=== PATIENT | male | born 1990 | race Caucasian/White ===

== ENCOUNTER 2016-10-21 23:03 | Emergency (ER) | payer MEDICAID ==
[2016-10-21 23:48] VITALS: RESP 14
[2016-10-22] MEDS ORDERED: Sodium Chloride 0.9% 1,000 ML IV STA (00:05)
--- NOTE | 2016-10-22 00:07 | C.PDOC ---
History Of Present Illness A 26 year old male, whose past medical history includes Diabetes (on Metformin) , presents to the emergency room with complaints of generalized weakness for 3 hrs. Patient reports that he felt drained with sweaty hands and "is not feeling like himself." Patient denies any fever, chills, chest pain, vomiting, diarrhea , dysuria, or any other complaints. Patient checked his fingerstick which was approximately 170. Time Seen by Provider: 10/21/16 23:55 Chief Complaint (Nursing): Weakness/Neurological Deficit History Per: Patient History/Exam Limitations: no limitations Onset/Duration Of Symptoms: Hrs (3) Current Symptoms Are (Timing): Still Present Seizure Or Post-ictal Symptoms: None Fall Associated With With Symptoms: No Severity: Mild Past Medical History Reviewed: Historical Data, Nursing Documentation, Vital Signs Vital Signs: Last Vital Signs Temp 98.1 F 10/21/16 23:41 Pulse 93 H 10/21/16 23:41 Resp 14 10/21/16 23:41 BP 133/88 10/21/16 23:41 Pulse Ox 95 10/22/16 00:09 - Medical History PMH: Asthma Surgical History: Hernia Repair Family History: States: Hypertension - Social History Hx Alcohol Use: No Hx Substance Use: No Review Of Systems Except As Marked, All Systems Reviewed And Found Negative. Constitutional: Positive for: Weakness (Generalized weakness). Negative for: Fever, Chills Cardiovascular: Negative for: Chest Pain Gastrointestinal: Negative for: Vomiting, Diarrhea Genitourinary: Negative for: Dysuria Physical Exam - Physical Exam Additional Physical Exam Comments: Constitutional: No acute distress. Head: Normocephalic. Atraumatic. Eyes: PERRL. ENT: Moist mucous membranes. Neck: Supple. Cardiovascular: Regular rate. Chest: No tenderness. Respiratory: Clear to auscultation bilaterally. GI: Soft. Nontender. Nondistended. Obese. Back: No CVA tenderness. Musculoskeletal: No tenderness or swelling of extremities. Skin: Dark discoloration of forehead. Neurologic: Alert, no focal deficit. ED Course And Treatment - Laboratory Results Result Diagrams: 10/22/16 00:15 10/22/16 00:15 O2 Sat by Pulse Oximetry: 95 Medical Decision Making Medical Decision Making: Labs unremarkable. Slightly elevated mono diff and LFTs, mono? Sent monospot, will not be performed by lab until AM. Will discharge home, supportive care, f/ u PMD, can call in for result. Disposition - Disposition Disposition: HOME/ ROUTINE Disposition Time: 01:06 Condition: STABLE Prescriptions: Ibuprofen [Motrin] 600 mg PO Q6 #25 tab Instructions: Mononucleosis (ED), Weakness (ED) - Clinical Impression Clinical Impression: Generalized weakness - Scribe Statement The provider has reviewed the documentation as recorded by the Kemal Kaiser Provider Scribe Attestation: All medical record entries made by the Kemal were at my direction and personally dictated by me. I have reviewed the chart and agree that the record accurately reflects my personal performance of the history, physical exam, medical decision making, and the department course for this patient. I have also personally directed, reviewed, and agree with the discharge instructions and disposition.
[2016-10-22 00:34] LABS: BASO # 0.1 K/uL (0.0-0.2); BASO % 0.8 % (0.0-2.0); EOS # 0.3 K/uL (0.0-0.7); EOS % 4.2 % (0.0-4.0); HEMATOCRIT 42.7 % (35.0-51.0); LYMPH # 2.5 K/uL (1.0-4.3); LYMPH % 35.1 % (20.0-40.0); MEAN CELL VOLUME 91.3 fL (80.0-94.0); MEAN CORPUSCULAR HEMOGLOBIN 30.3 pg (27.0-31.0); MEAN CORPUSCULAR HGB CONC 33.2 g/dL (33.0-37.0); MEAN PLATELET VOLUME 10.2 fL (7.2-11.7); MONO # 0.9 K/uL (0.0-0.8); MONO % 12.9 % (0.0-10.0); NRBC % 0.1 % (0.0-2.0); RED CELL DISTRIBUTION WIDTH 12.9 % (11.5-14.5)
[2016-10-22 00:41] LABS: RBC URINE < 1 /hpf (0-3); URINE BILIRUBIN NEGATIVE (NEGATIVE); URINE BLOOD NEGATIVE (NEGATIVE); URINE COLOR Yellow (YELLOW); URINE GLUCOSE (UA) NORMAL (Normal); URINE KETONE NEGATIVE (NEGATIVE); URINE LEUKOCYTE ESTERASE NEG Leu/uL (Negative); URINE PROTEIN NEGATIVE (NEGATIVE); URINE UROBILINOGEN NORMAL mg/dL (0.2-1.0); WBC URINE 1 /hpf (0-5)
[2016-10-22 00:42] LABS: CHLORIDE 103 mmol/L (98-107)
[2016-10-22 00:43] LABS: POTASSIUM 4.5 mmol/L (3.6-5.2); SODIUM 141 mmol/L (132-148)
[2016-10-22 00:45] LABS: ALB/GLOB RATIO 1.3 (1.0-2.1); AST/SGOT 82 U/L (17-59); BILIRUBIN,TOTAL 0.8 mg/dL (0.2-1.3); BLOOD UREA NITROGEN 10 mg/dL (9-20); CARBON DIOXIDE 25 mmol/L (22-30); GFR AFRICAN-AMERICAN > 60; GLUCOSE,RANDOM 162 mg/dL (75-110); TOTAL PROTEIN 7.6 g/dL (6.3-8.3)
[2016-10-22 00:46] LABS: ALKALINE PHOSPHATASE 67 U/L (38-126); ALT/SGPT 158 U/L (21-72); CALCIUM 8.7 mg/dl (8.6-10.4)
[2016-10-22 00:52] LABS: DRAW SITE VBG; VENOUS BLOOD GAS BASE EXCESS 1.2 mmol/L (0.0-2.0); VENOUS BLOOD GAS PCO2 44 mmHg (40-60); VENOUS BLOOD PH 7.39 (7.32-7.43)
[2016-10-22 01:41] VITALS: BP 130/80; PULSE 80; TEMP 98; O2SAT 98
--- NOTE | 2016-10-22 09:19 | RAD ---
HISTORY: weakness COMPARISON: None available. TECHNIQUE: Chest PA and lateral FINDINGS: Examination limited by habitus hypoinflation. LUNGS: No focal consolidation. Please note that chest x-ray has limited sensitivity for the detection of pulmonary masses. PLEURA: No significant pleural effusion identified. No definite pneumothorax . CARDIOVASCULAR: The cardiomediastinal silhouette appears within normal limits of size. OSSEOUS STRUCTURES: No acute osseous abnormality identified. VISUALIZED UPPER ABDOMEN: Unremarkable. OTHER FINDINGS: None. IMPRESSION: No focal consolidation, significant pleural effusion, or definite pneumothorax identified.
== END 2016-10-22 01:29 | disposition home or self-care (01) ==
LOC: C.ER 23:03
DX: R53.1 Weakness (principal); E11.9 Type 2 diabetes mellitus without complications; Z79.84 Long term (current) use of oral hypoglycemic drugs
CPT/HCPCS: 71020; 80053; 81001; 82009; 82803; 85025; 86308; 99285; J7040

== ENCOUNTER 2017-04-27 09:23 | Emergency (ER) | payer MEDICAID ==
[2017-04-27 09:43] VITALS: TEMP 97.5
[2017-04-27] MEDS ORDERED: Sodium Chloride 0.9% 1,000 ML IV ONE (09:58)
[2017-04-27 10:00] VITALS: PULSE 88; O2SAT 98
[2017-04-27] MEDS ORDERED: Sodium Chloride 0.9% 1,000 ML ONE (10:04)
--- NOTE | 2017-04-27 10:13 | C.PDOC ---
History Of Present Illness 27 y/o male, pmhx diabetes and asthma, presents to emergency department with complaint of palpitations starting at 0600 today, shortly after eating [employer] with orange juice. Patient reports feeling a "heartbeat in his head ", feeling lightheaded, and that palms were sweaty. Patient reports symptoms lasted about 10 minutes, took an aspirin, and symptoms resolved. Denies ever having chest pain. Patient states similar symptoms have been recurring for almost a month. He additionally reports that he is not sleeping well, typically 4 hrs per night, and is restless during the night. Time Seen by Provider: 04/27/17 09:48 Chief Complaint (Nursing): Palpitations History Per: Patient History/Exam Limitations: no limitations Onset/Duration Of Symptoms: Days, Intermittent Episodes Associated Symptoms: Dizziness. denies: Chest Pain Recent travel outside of the [place]: No Past Medical History Reviewed: Historical Data, Nursing Documentation, Vital Signs Vital Signs: Last Vital Signs Temp 97.5 F L 04/27/17 09:31 Pulse 88 04/27/17 11:59 Resp 16 04/27/17 11:59 BP 137/81 04/27/17 11:59 Pulse Ox 98 04/27/17 12:41 - Medical History PMH: Asthma Surgical History: Hernia Repair Family History: States: Hypertension - Social History Hx Alcohol Use: No Hx Substance Use: No - Immunization History Hx Tetanus Toxoid Vaccination: No Hx Influenza Vaccination: No Hx Pneumococcal Vaccination: No Review Of Systems Except As Marked, All Systems Reviewed And Found Negative. Constitutional: Negative for: Fever, Chills Cardiovascular: Positive for: Palpitations. Negative for: Chest Pain Respiratory: Negative for: Cough, Shortness of Breath, Wheezing Gastrointestinal: Negative for: Nausea, Vomiting, Abdominal Pain Skin: Negative for: Rash Neurological: Positive for: Dizziness. Negative for: Headache Physical Exam - Physical Exam Appears: Non-toxic, No Acute Distress, Other (obese) Skin: Normal Color, Warm, Dry Head: Atraumatic, Normacephalic Chest: Symmetrical Cardiovascular: Rhythm Regular Respiratory: Normal Breath Sounds, No Rales, No Rhonchi, No Wheezing Gastrointestinal/Abdominal: Soft, No Tenderness, No Guarding, No Rebound Back: Normal Inspection Extremity: Normal ROM, Capillary Refill (< 2 sec.) Neurological/Psych: Oriented x3, Normal Speech, Normal Cognition ED Course And Treatment - Laboratory Results Result Diagrams: 04/27/17 11:25 04/27/17 12:02 Lab Interpretation: No Acute Changes ECG: Interpreted By Me, Viewed By Me ECG Rhythm: Sinus Rhythm ECG Interpretation: No Acute Changes Rate From EC O2 Sat by Pulse Oximetry: 98 Pulse Ox Interpretation: Normal - Radiology CXR: Viewed By Me, Read By Radiologist CXR Interpretation: Yes: No Acute Disease Medical Decision Making Medical Decision Making: Impression: 27 y/o male with c/o palpitations and associated with dizziness, intermittently over last few months Prior records reviewed: Patient last seen 10/22/16 for generalized weakness, normal labs Plan: * EKG * Labs * CXR Progress: CxR shows no acute cardiopulmonary disease Patient states he was seen by clinical rehabilitation aide 8 months ago had testing and everything was normal Labs reviewed with no acute findings, troponin negative. satellite project site monitor showed no arrythymias. Patient remained well and asymptomatic during ED evaluation over 3 hours. He denies chest pain or SOB. Symptoms likely not cardiac related. Provide copy of all results and instruct patient to follow up with PCP, clinical rehabilitation aide for further evaluation. He feels comfortable with discharge Disposition Counseled Patient/Family Regarding: Diagnosis, Need For Followup - Disposition Referrals: Geovanny Olmstead MD [Medical Doctor] - Disposition: HOME/ ROUTINE Disposition Time: 12:38 Condition: STABLE Additional Instructions: Your labs EKG and Chest xray were normal It is important that you follow up with your primary doctor in timely manner for further care Try to reduce stress and get more sleep and rest Continue taking your usual diabetic medications Return to ER for any concerning or worsening symptoms Instructions: Palpitations (ED) Forms: [facility] (Eritrean) - POA Present On Arrival: None - Clinical Impression Clinical Impression: Palpitations, Insomnia - PA / UTILITY AIRCREWMAN / Resident Statement MD/DO has reviewed & agrees with the documentation as recorded. - Scribe Statement The provider has reviewed the documentation as recorded by the Kemal Joe All medical record entries made by the Joelibvicente were at my direction and personally dictated by me. I have reviewed the chart and agree that the record accurately reflects my personal performance of the history, physical exam, medical decision making, and the department course for this patient. I have also personally directed, reviewed, and agree with the discharge instructions and disposition.
[2017-04-27 10:18] LABS: RBC URINE < 1 /hpf (0-3); URINE BILIRUBIN NEGATIVE (NEGATIVE); URINE BLOOD NEGATIVE (NEGATIVE); URINE COLOR Yellow (YELLOW); URINE GLUCOSE (UA) 1+ mg/dL (Normal); URINE KETONE NEGATIVE (NEGATIVE); URINE LEUKOCYTE ESTERASE NEG Leu/uL (Negative); URINE PROTEIN NEGATIVE (NEGATIVE); WBC URINE < 1 /hpf (0-5)
--- NOTE | 2017-04-27 10:28 | RAD ---
HISTORY: Palpations COMPARISON: Comparison chest 10/22/2016 TECHNIQUE: Chest PA and lateral FINDINGS: LUNGS: No active pulmonary disease. PLEURA: No significant pleural effusion identified. No pneumothorax apparent. CARDIOVASCULAR: Normal. OSSEOUS STRUCTURES: Minor chronic appearing anterior stature loss of several mid thoracic segments unchanged VISUALIZED UPPER ABDOMEN: Normal. OTHER FINDINGS: None. IMPRESSION: No acute cardiopulmonary disease.
[2017-04-27 11:30] LABS: BASO # 0.1 K/uL (0.0-0.2); BASO % 0.7 % (0.0-2.0); EOS # 0.4 K/uL (0.0-0.7); EOS % 5.2 % (0.0-4.0); HEMATOCRIT 40.2 % (35.0-51.0); LYMPH # 2.9 K/uL (1.0-4.3); LYMPH % 37.9 % (20.0-40.0); MEAN CELL VOLUME 90.8 fL (80.0-94.0); MEAN CORPUSCULAR HEMOGLOBIN 30.5 pg (27.0-31.0); MEAN CORPUSCULAR HGB CONC 33.6 g/dL (33.0-37.0); MONO # 1.1 K/uL (0.0-0.8); MONO % 14.4 % (0.0-10.0); RED CELL DISTRIBUTION WIDTH 12.6 % (11.5-14.5); WHITE BLOOD COUNT 7.7 K/uL (4.8-10.8)
[2017-04-27 12:01] VITALS: BP 137/81; RESP 16
[2017-04-27 12:13] LABS: CHLORIDE 100 mmol/L (98-107)
[2017-04-27 12:14] LABS: SODIUM 136 mmol/L (132-148)
[2017-04-27 12:16] LABS: BILIRUBIN,TOTAL 0.6 mg/dL (0.2-1.3); CARBON DIOXIDE 30 mmol/L (22-30); GFR AFRICAN-AMERICAN > 60
[2017-04-27 12:17] LABS: ALB/GLOB RATIO 1.1 (1.0-2.1); ALKALINE PHOSPHATASE 86 U/L (38-126); ALT/SGPT 95 U/L (21-72); AST/SGOT 30 U/L (17-59); BLOOD UREA NITROGEN 12 mg/dL (9-20); CALCIUM 8.7 mg/dl (8.6-10.4); GLUCOSE,RANDOM 117 mg/dL (75-110); TOTAL PROTEIN 7.8 g/dL (6.3-8.3)
[2017-04-27 12:24] LABS: INR 1.1
[2017-04-27 12:48] LABS: THYROID STIMULATING HORMONE 2.98 mIU/L (0.46-4.68)
--- NOTE | 2017-04-28 11:48 | CARD ---
APPROVED REPORT EKG Measurement Heart [id number] <Conclusion> Normal sinus rhythm Normal ECG
== END 2017-04-27 13:00 | disposition home or self-care (01) ==
LOC: C.ER 09:23
DX: G47.00 Insomnia, unspecified (principal); R00.2 Palpitations; E11.9 Type 2 diabetes mellitus without complications
CPT/HCPCS: 71020; 80053; 81001; 82553; 83880; 84443; 84484; 85025; 85610; 85730; 93005; 96360; 99285; J7040

== ENCOUNTER 2017-07-28 16:03 | Emergency (ER) | payer MEDICAID ==
[2017-07-28 16:08] VITALS: RESP 18
[2017-07-28] MEDS ORDERED: Sodium Chloride 0.9% 1,000 ML IV STA (16:29)
[2017-07-28 16:56] LABS: BASO # 0.1 K/uL (0.0-0.2); BASO % 1.1 % (0.0-2.0); EOS # 0.4 K/uL (0.0-0.7); EOS % 6.5 % (0.0-4.0); HEMOGLOBIN 14.6 g/dL (12.0-18.0); LYMPH # 2.2 K/uL (1.0-4.3); LYMPH % 33.7 % (20.0-40.0); MEAN CELL VOLUME 90.1 fL (80.0-94.0); MEAN CORPUSCULAR HEMOGLOBIN 30.9 pg (27.0-31.0); MEAN CORPUSCULAR HGB CONC 34.2 g/dL (33.0-37.0); MEAN PLATELET VOLUME 10.1 fL (7.2-11.7); MONO # 0.9 K/uL (0.0-0.8); MONO % 14.4 % (0.0-10.0); NEUT # 2.8 K/uL (1.8-7.0); NEUT % 44.3 % (50.0-75.0); NRBC % 0.1 % (0.0-2.0); RBC 4.73 Mil/uL (4.40-5.90); RED CELL DISTRIBUTION WIDTH 12.7 % (11.5-14.5); WHITE BLOOD COUNT 6.4 K/uL (4.8-10.8)
[2017-07-28 17:02] LABS: URINE BILIRUBIN NEGATIVE (NEGATIVE); URINE BLOOD NEGATIVE (NEGATIVE); URINE CLARITY Clear (Clear); URINE COLOR Yellow (YELLOW); URINE GLUCOSE (UA) NORMAL (Normal); URINE LEUKOCYTE ESTERASE NEG Leu/uL (Negative); URINE NITRATE NEGATIVE (NEGATIVE); URINE PROTEIN NEGATIVE (NEGATIVE); URINE UROBILINOGEN NORMAL mg/dL (0.2-1.0)
[2017-07-28 17:07] LABS: ALB/GLOB RATIO 1.2 (1.0-2.1); ALBUMIN 4.2 g/dL (3.5-5.0); ALT/SGPT 54 U/L (21-72); AST/SGOT 23 U/L (17-59); BLOOD UREA NITROGEN 14 mg/dL (9-20); CALCIUM 8.9 mg/dl (8.6-10.4); GFR AFRICAN-AMERICAN > 60; GFR NON-AFRICAN AMERICAN > 60; MAGNESIUM 1.4 mg/dL (1.6-2.3)
[2017-07-28 17:19] LABS: CK-MB 0.36 ng/mL (0.0-3.38)
[2017-07-28 17:31] LABS: D DIMER < 200 ng/mlDDU (0-243); INR 1.1; PARTIAL THROMBOPLASTIN TIME 34 SECONDS (21-34)
[2017-07-28 17:40] LABS: BARBITURATES, UR NEGATIVE (NEGATIVE); BENZODIAZEPINES, UR NEGATIVE (NEGATIVE); OPIATES, UR NEGATIVE (NEGATIVE); PHENCYCLIDINE, UR NEGATIVE (NEGATIVE)
--- NOTE | 2017-07-28 17:52 | C.PDOC ---
History Of Present Illness 27yo male, reports he was talking to his brother earlier today when suddenly his brother informed him his speech was different. Patient reports he had a 5 minute long episode of slurred speech and left sided headache which has now subsided. He states after this episode, he felt anxious, his palms were sweaty, he was shaking and had heart palpitations. Patient denies any chest pain, dizziness or weakness. Of note, patient states he has had panic attacks before and this episode was worse than usual. He denies any other complaints. Time Seen by Provider: 07/28/17 16:21 Chief Complaint (Nursing): Dizziness/Lightheaded History Per: Patient History/Exam Limitations: no limitations Onset/Duration Of Symptoms: Hrs Current Symptoms Are (Timing): Still Present Activity At Onset Of Symptoms: Sitting Past Medical History Reviewed: Historical Data, Nursing Documentation, Vital Signs Vital Signs: Last Vital Signs Temp 97.8 F 07/28/17 18:12 Pulse 100 H 07/28/17 18:12 Resp 18 07/28/17 18:12 BP 124/82 07/28/17 18:12 Pulse Ox 96 07/28/17 18:20 - Medical History PMH: Asthma Surgical History: Hernia Repair Family History: States: Hypertension - Social History Hx Alcohol Use: No Hx Substance Use: No - Immunization History Hx Tetanus Toxoid Vaccination: No Hx Influenza Vaccination: No Hx Pneumococcal Vaccination: No Review Of Systems Except As Marked, All Systems Reviewed And Found Negative. Constitutional: Positive for: Sweats Cardiovascular: Positive for: Palpitations Neurological: Positive for: Change in Speech, Headache (left sided) Physical Exam - Physical Exam Appears: Non-toxic Skin: Normal Color, Warm Head: Atraumatic, Normacephalic Eye(s): bilateral: Normal Inspection, PERRL, EOMI Neck: Normal ROM, Supple Chest: Symmetrical Cardiovascular: Rhythm Regular Respiratory: Normal Breath Sounds Neurological/Psych: Oriented x3, Normal Speech, Normal Cognition, Normal Cranial Nerves, Normal Motor, Normal Sensation ED Course And Treatment - Laboratory Results Result Diagrams: 07/28/17 16:52 07/28/17 16:52 O2 Sat by Pulse Oximetry: 96 (RA) Pulse Ox Interpretation: Normal Medical Decision Making Medical Decision Making: Plan: -- CT Head -- Labs -- IV Fluids Case discussed with Dr. Long who states if CT is negative, patient does not meet criteria for admission for TIA and patient can be discharged home with instructions for outpatient follow up and outpatient workup. Time: 1725 PROCEDURE: CT HEAD WITHOUT CONTRAST. HISTORY: left TONEY COMPARISON: None available. TECHNIQUE: Axial computed tomography images were obtained through the head/brain without intravenous contrast. Radiation dose: Total exam DLP = 1372.81 mGy-cm. This CT exam was performed using one or more of the following dose reduction techniques: Automated exposure control, adjustment of the mA and/or kV according to patient size, and/or use of iterative reconstruction technique. FINDINGS: HEMORRHAGE: No intracranial hemorrhage. BRAIN: No mass effect or edema. No atrophy or chronic microvascular ischemic changes. VENTRICLES: Unremarkable. No hydrocephalus. CALVARIUM: Unremarkable. PARANASAL SINUSES: Small bilateral maxillary retention cyst/polyp. Left ora bullosa. MASTOID AIR CELLS: Unremarkable as visualized. No inflammatory changes. OTHER FINDINGS: None. IMPRESSION: No intracranial mass, hemorrhage or evidence of acute infarct. Small bilateral maxillary retention cysts/ polyps. Left ora bullosa incidentally noted. Patient informed of CT findings and plan per Dr. Long. Patient is agreeable and is stable for discharge home. Disposition - Disposition Referrals: Rajan Long MD [Staff Provider] - Disposition: HOME/ ROUTINE Disposition Time: 18:19 Condition: STABLE Additional Instructions: Follow up with PMD and Neurologist within 1-2 days. Return to ED if feel worse. Instructions: General Headache (ED) Forms: [facility] (Faroese) - Clinical Impression Clinical Impression: Headache - PA / BAG PRESS OPERATOR / Resident Statement MD/DO has reviewed & agrees with the documentation as recorded. - Scribe Statement The provider has reviewed the documentation as recorded by the Kemal Felix Provider Scribe Attestation: All medical record entries made by the Kemal were at my direction and personally dictated by me. I have reviewed the chart and agree that the record accurately reflects my personal performance of the history, physical exam, medical decision making, and the department course for this patient. I have also personally directed, reviewed, and agree with the discharge instructions and disposition.
[2017-07-28 18:12] VITALS: BP 124/82; PULSE 100; TEMP 97.8
[2017-07-28 18:20] VITALS: O2SAT 96
--- NOTE | 2017-07-28 19:19 | CT ---
PROCEDURE: CT HEAD WITHOUT CONTRAST. HISTORY: left TONEY COMPARISON: None available. TECHNIQUE: Axial computed tomography images were obtained through the head/brain without intravenous contrast. Radiation dose: Total exam DLP = 1372.81 mGy-cm. This CT exam was performed using one or more of the following dose reduction techniques: Automated exposure control, adjustment of the mA and/or kV according to patient size, and/or use of iterative reconstruction technique. FINDINGS: HEMORRHAGE: No intracranial hemorrhage. BRAIN: No mass effect or edema. No atrophy or chronic microvascular ischemic changes. VENTRICLES: Unremarkable. No hydrocephalus. CALVARIUM: Unremarkable. PARANASAL SINUSES: Small bilateral maxillary retention cyst/polyp. Left ora bullosa. MASTOID AIR CELLS: Unremarkable as visualized. No inflammatory changes. OTHER FINDINGS: None. IMPRESSION: No intracranial mass, hemorrhage or evidence of acute infarct. Small bilateral maxillary retention cysts/ polyps. Left ora bullosa incidentally noted.
== END 2017-07-28 18:31 | disposition home or self-care (01) ==
LOC: C.ER 16:03
DX: R51 Headache (principal)
CPT/HCPCS: 70450; 80053; 80324; 80345; 80346; 80349; 80353; 80358; 80361; 81001; 82550; 82553; 83735; 83992; 84484; 85025; 85378; 85610; 85730; 96360; 99285; J7040

== ENCOUNTER 2018-07-19 12:14 | Outpatient (CLI) | payer MEDICAID | END 2018-07-19 12:15 | disposition home or self-care (01) | LOC: C.PAT 12:14 | DX: Z01.818 Encounter for other preprocedural examination (principal); J34.2 Deviated nasal septum; J34.3 Hypertrophy of nasal turbinates; J32.0 Chronic maxillary sinusitis; J32.2 Chronic ethmoidal sinusitis ==

== ENCOUNTER 2018-07-31 06:12 | Day surgery (SDC) | payer MEDICAID ==
[2018-07-19 12:30] VITALS: BMI 41.8
[2018-07-31] MEDS ORDERED: Lidocaine/Epinephrine 1% 1:100000 10 ML IJ ONE (07:27)
[2018-07-31] MEDS ORDERED: ceFAZolin 1 gm in NS 2 GM/200 ML BAG IVPB ONE (07:27)
[2018-07-31] MEDS ORDERED: EPINEPHrine 1:1000 Nasal Sol(30mL) ONE (07:28)
[2018-07-31] MEDS ORDERED: Acetaminophen-Codeine 300/30 mg Tab PO PRN (08:07)
[2018-07-31] MEDS ORDERED: Dextrose 5%/0.45% NS 1,000 ML IV SCH (08:15)
[2018-07-31] MEDS ORDERED: Midazolam 2 MG/2 ML VIAL ONE (08:24)
[2018-07-31] MEDS ORDERED: Propofol 10 mg/ml Inj (20 ML) ONE (08:24)
[2018-07-31] MEDS ORDERED: Succinylcholine Chloride 20 mg/ml Syr (5 ml) IV ONE ×2 (08:27→08:30)
[2018-07-31] MEDS ORDERED: Phenylephrine 10 mg/ml Inj ONE (09:48)
[2018-07-31] MEDS ORDERED: HYDROmorphone 0.5 mg/0.5 ml ISec IVP PRN (10:08)
[2018-07-31] MEDS ORDERED: Lactated Ringer's 1,000 ML IV SCH (10:15)
[2018-07-31] MEDS ORDERED: Lactated Ringer's 1,000 ML IV ONE (10:39)
[2018-07-31 14:12] VITALS: BP 147/80; PULSE 91; RESP 20; TEMP 98; O2SAT 96
--- NOTE | 2018-07-31 20:00 | OP ---
PROCEDURE DATE: 07/31/2018 POSTOPERATIVE DIAGNOSES: Deviated septum, large turbinates, sinusitis changes noted in the ethmoid sinuses and maxillary antrum stenosed on both sides. POSTOPERATIVE DIAGNOSES: Deviated septum, large turbinates, sinusitis, chronic PROCEDURE: Septoplasty, endoscopic bilateral maxillary antrostomy, endoscopic bilateral man ethmoidectomy, endoscopic bilateral inferior turbinate reduction. SURGEON: Oniel Blair MD DESCRIPTION OF PROCEDURE: The patient was brought into room, placed in supine position, anesthesia initiated through an ET tube and the patient was draped in usual manner. Navigation was set and used throughout the case in order to ensure that the skull base and orbit were not entered. Adrenaline-soaked pledgets were inserted into nasal cavity that remained there for 5 minutes then removed. The septum was injected with lidocaine with epinephrine on both sides. A [place] incision was made on the left and mucoperichondrial flap was raised on that side. A vertical incision was made in the cartilage leaving a 1-1/2 cm anterior and superior strut and the mucoperichondrial flap was raised on the other side. Deviated portions of the bone and cartilage were removed using forceps and chisel. A quilting suture was used to suture the two flaps together and close the [place] incision. The 0-degree scope was inserted into the nasal cavity. The inferior turbinates were noted to be enlarged and reduced in size using scissors going from an inferior to superior, anterior posterior direction on both sides, first on the left then on the right. Bleeding was controlled using suction cautery on both sides. Attention was turned to left and the turbinate was injected with lidocaine with epinephrine and medialized. The uncinate process was medialized using a [place] elevator and removed using forceps. The ethmoid bulla was entered using a debrider inferomedially going posterior to the basal lamella, then anterior and superiorly until the ethmoid bulla was removed. The basal lamella was entered. Posterior ethmoid cells were entered and opened. Skull base was identified and followed anteriorly all the way to the area of anterior ethmoid air cells. Next, a curved suction hooked up to navigation was used to locate the maxillary antrum which was noted to be stenosed and opened using forceps. Attention was turned to the other side. The middle turbinate was injected with lidocaine with epinephrine and medialized. The uncinate process was medialized using a [place] elevator and removed using forceps. The ethmoid bulla was entered inferomedially going posteriorly to the basal lamella then anterior and superiorly until the ethmoid bulla was removed. The basal lamella was entered. The posterior ethmoid cells were entered and opened. Skull base was identified and followed anteriorly all the way to the area of anterior ethmoid air cells. A curved suction hooked up to navigation was used to locate the maxillary antrum which was noted to be stenosed and opened using forceps and bleeding was controlled using suction cautery on both sides. Stents were placed. Splints were placed. The patient was taken off anesthesia and taken to recovery room in stable manner. Oniel Blair MD
== END 2018-07-31 14:17 | disposition home or self-care (01) ==
LOC: C.SDS 06:12
PROVIDERS: ATTEND Otolaryngology
DX: J34.2 Deviated nasal septum (principal); J34.3 Hypertrophy of nasal turbinates; J32.0 Chronic maxillary sinusitis; E11.9 Type 2 diabetes mellitus without complications; J32.2 Chronic ethmoidal sinusitis
CPT/HCPCS: 30130; 30520; 31020; 31201; 61781; 82948; 88304; J0690; J1170; J2250; J2370; J2704; J3010; J7120

== ENCOUNTER 2018-08-02 20:55 | Emergency (ER) | payer MEDICAID ==
[2018-08-02 20:55] VITALS: BMI 41.8
[2018-08-02] MEDS ORDERED: Sodium Chloride 0.9% 1,000 ML IV ONE ×2 (21:16→21:55)
--- NOTE | 2018-08-02 21:16 | C.PDOC ---
History Of Present Illness Patient had sinus surgery two days ago by Dr. Blair, he has Hx of noninsulin dependent diabetes not on any medications, but states since his surgery and starting prednisone his sugar has been out of control greater than 500. Denies f ever or chills. Time Seen by Provider: 08/02/18 21:15 Chief Complaint (Nursing): High Blood Sugar History Per: Patient History/Exam Limitations: no limitations Onset/Duration Of Symptoms: Days Current Symptoms Are (Timing): Still Present Severity: Moderate Pain Scale Rating Of: 4 Current Diabetic Medications: None Causative (Exacerbating) Factor(s): Recent Steroids Associated Infectious Symptoms: denies: Other (Fever, Chills) Recent travel outside of the [place]: No Past Medical History Reviewed: Historical Data, Nursing Documentation, Vital Signs Vital Signs: Last Vital Signs Temp 98.3 F 08/02/18 21:01 Pulse Resp 18 08/02/18 21:01 BP 136/81 08/02/18 21:01 Pulse Ox 99 08/02/18 21:01 - Medical History PMH: Asthma ("NOT HOSPITALIZED SINCE A YOUNG CHILD.") Denies: Chronic Kidney Disease Surgical History: Hernia Repair Family History: States: Hypertension - Social History Hx Alcohol Use: No Hx Substance Use: No - Immunization History Hx Tetanus Toxoid Vaccination: No Hx Influenza Vaccination: No Hx Pneumococcal Vaccination: No Review Of Systems Constitutional: Negative for: Fever, Chills Cardiovascular: Negative for: Chest Pain, Palpitations Respiratory: Negative for: Cough, Shortness of Breath Gastrointestinal: Negative for: Nausea, Vomiting Neurological: Negative for: Weakness, Numbness Physical Exam - Physical Exam Appears: Non-toxic, Other (Obese) Skin: Warm, Dry Head: Normacephalic Eye(s): bilateral: Normal Inspection Nose: Other (Nasal packing in place) Oral Mucosa: Moist Neck: Trachea Midline, Supple Chest: Symmetrical, No Tenderness Cardiovascular: Rhythm Regular Respiratory: No Rales, No Rhonchi, No Wheezing Gastrointestinal/Abdominal: Soft, No Tenderness Neurological/Psych: Oriented x3 ED Course And Treatment - Laboratory Results Result Diagrams: 08/02/18 21:31 08/02/18 21:31 O2 Sat by Pulse Oximetry: 99 (Room air) Pulse Ox Interpretation: Normal Progress Note: Blood work and urinalysis ordered. IV fluids administered. Reevaluation Time: 02:29 Reassessment Condition: Improved Disposition Counseled Patient/Family Regarding: Studies Performed, Diagnosis - Disposition Referrals: Geovanny Olmstead MD [Primary Care Provider] - Disposition: HOME/ ROUTINE Disposition Time: 21:16 Condition: FAIR Additional Instructions: Please check your sugars at least twice a day Prescriptions: metFORMIN [glucOPHAGE] 500 mg PO BID #20 tab Instructions: Hyperglycemia, Adult (DC) Forms: [facility] (Mohawk) - Clinical Impression Clinical Impression: Hyperglycemia - Scribe Statement The provider has reviewed the documentation as recorded by the Scribvicente Milligan All medical record entries made by the Scribe were at my direction and personally dictated by me. I have reviewed the chart and agree that the record accurately reflects my personal performance of the history, physical exam, medical decision making, and the department course for this patient. I have also personally directed, reviewed, and agree with the discharge instructions and disposition.
[2018-08-02 21:35] LABS: BASO % 0.5 % (0.0-2.0); HEMOGLOBIN 15.3 g/dL (12.0-18.0); LYMPH % 11.6 % (20.0-40.0); MEAN CELL VOLUME 92.3 fL (80.0-94.0); MEAN CORPUSCULAR HEMOGLOBIN 30.3 pg (27.0-31.0); MEAN CORPUSCULAR HGB CONC 32.8 g/dL (33.0-37.0); MEAN PLATELET VOLUME 10.1 fL (7.2-11.7); MONO # 0.4 K/uL (0.0-0.8); MONO % 4.3 % (0.0-10.0); NEUT % 83.6 % (50.0-75.0); RBC 5.04 Mil/uL (4.40-5.90); WHITE BLOOD COUNT 8.4 K/uL (4.8-10.8)
[2018-08-02] MEDS ORDERED: Sodium Chloride 0.9% 1,000 ML ONE ×2 (21:48→22:12)
[2018-08-02 21:53] LABS: ALB/GLOB RATIO 1.4 (1.0-2.1); ALBUMIN 4.8 g/dL (3.5-5.0); ALT/SGPT 83 U/L (21-72); AST/SGOT 89 U/L (17-59); BLOOD UREA NITROGEN 19 mg/dL (9-20); CALCIUM 8.8 mg/dl (8.6-10.4); GFR NON-AFRICAN AMERICAN > 60
[2018-08-02 22:24] LABS: URINE BILIRUBIN NEGATIVE (NEGATIVE); URINE BLOOD NEGATIVE (NEGATIVE); URINE CLARITY Clear (Clear); URINE COLOR Colorless (YELLOW); URINE GLUCOSE (UA) 3+ mg/dL (Normal); URINE LEUKOCYTE ESTERASE NEG Leu/uL (Negative); URINE PROTEIN NEGATIVE (NEGATIVE); URINE UROBILINOGEN NORMAL mg/dL (0.2-1.0)
[2018-08-02 22:50] LABS: VENOUS BLOOD GAS BASE EXCESS 2.3 mmol/L (0.0-2.0); VENOUS BLOOD GAS PCO2 56 mmHg (40-60); VENOUS BLOOD GAS PO2 34 mm/Hg (30-55); VENOUS BLOOD PH 7.33 (7.32-7.43)
[2018-08-02] MEDS ORDERED: (Novolin R) Insulin Human Regular 100 units/ml vial IVP ONE (23:00)
[2018-08-02] MEDS ORDERED: (Novolin R) Insulin Human Regular 100 units/ml vial ONE (23:21)
[2018-08-03] MEDS ORDERED: Sodium Chloride 0.9% 1,000 ML IV ONE (00:10)
[2018-08-03] MEDS ORDERED: Sodium Chloride 0.9% 1,000 ML ONE (00:17)
[2018-08-03 00:26] VITALS: BP 144/89; PULSE 90; RESP 19; TEMP 98.4
[2018-08-03] MEDS ORDERED: (Novolin R) Insulin Human Regular 100 units/ml vial IVP STA (00:41)
[2018-08-03] MEDS ORDERED: (Novolin R) Insulin Human Regular 100 units/ml vial ONE (01:15)
[2018-08-03 02:32] VITALS: O2SAT 99
== END 2018-08-03 03:01 | disposition home or self-care (01) ==
LOC: C.ER 20:55 → SUPCPDRO 20:55 → C.ER 08-03 03:01
DX: E11.65 Type 2 diabetes mellitus with hyperglycemia (principal)
CPT/HCPCS: 80053; 81001; 82009; 82803; 82948; 85025; 96374; 96376; 99285; J7030